=== PATIENT | female | born 1945 | race Caucasian/White ===

== ENCOUNTER 2017-06-17 00:55 | Observation (INO) | payer MEDICARE, OTHER ==
[2017-06-17] VITALS (10 sets, daily range): BP systolic 127–166; BP diastolic 57–86; PULSE 76–123; RESP 14–20; TEMP 97.6–98.4; O2SAT 96–100
[~2017-06-17] VITALS: Ht 167.6 cm; Wt 87.5 kg
[~2017-06-17 00:55] MED LIST: APIX5TAB PO; DIGO0.12 PO; NITR1SUB3 SL; RANI150C PO; RITU500P IVPB; VENTAER INH; ZOFR4TAB3 SL
[2017-06-17] MEDS ORDERED: BECL0.07 INH (01:14)
[2017-06-17] MEDS ORDERED: SODIUM CHLORIDE 0.9% FLUSH 10 ML FLUSH IVF PRN ×2 (01:15→04:30)
--- NOTE | 2017-06-17 01:20 | PD ---
HPI Chief Complaint: Cardiac Complaint Time Seen by Provider: 01:04 Travel History International Travel<30 days: No Contact w/Intl Traveler<30days: No Traveled to known affect area: No History of Present Illness HPI 71-year-old female presents to the emergency department by private transportation for evaluation of rapid heart rate. Patient reports just prior to arrival to the emergency department patient was awakened from sleep and noted that her heart rate was rapid. Patient reports heart rate was 150 at home. Patient also reports that she felt heaviness in her chest 3-4/10 in intensity. Patient took one sublingual nitroglycerin without symptomatic relief. Patient did not take aspirin due to her allergy to aspirin as well as currently taking insulin also. Patient states that she has had cardiac ablation by Dr. Ballesteros her financial assistance advisor October 2016 is had no issues with heart rate or chest pressure since that time. Patient was just seen by her financial assistance advisor Dr Ballesteros Thursday and scheduled to have outpatient echocardiogram and Holter monitoring. Patient is also followed by Dr. 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 Patient is been tolerating the medication well and symptoms have improved. Patient has history of atrial fibrillation, cardiac ablation, Xavier' s granulomatosis, left lower extremity DVT with allergy to Coumadin prior Xarelto on Eliquis, arthritis, asthma, cardiac disease with minor blockage 30% cardiac catheterization 2 no angina or CO history, sleep apnea w/ cpap, GERD, postmenopausal, sinus tachycardia, CVA and TIA, and multiple medication allergies. Patient also experienced nausea and shortness of breath. No referred neck jaw back shoulder arm or abdominal pain. [facility] Past Medical History Narrative Medical atrial fibrillation, sinus tachycardia, cardiac ablation, Xavier's granulomatosis, left lower extremity DVT with allergy to Coumadin prior Xarelto on Eliquis, arthritis, asthma, cardiac disease with minor blockage 30% cardiac catheterization 2 no angina or CO history, sleep apnea w/ cpap, GERD, postmenopausal, sinus tachycardia, CVA and TIA, and multiple medication allergies; hysterectomy cholecystectomy knee surgery tonsillectomy bladder sling ; no tobacco use no alcohol use; nursing notes reviewed Hx Anticoagulant Therapy: Yes (eliquis) Arthritis: Yes Asthma: No Atrial Fibrillation: Yes Autoimmune Disease: Yes (JAMIE'S DISEASE) Blood Disorders: No Heart Rhythm Problems: Yes (A- fib) Cancer: No Cardiac Catheterization: Yes (1994, 2013) Cardiovascular Problems: Yes High Cholesterol: No Chemotherapy: Yes (2 WEEKS AGO) Chest Pain: No Congestive Heart Failure: No COPD: No Cerebrovascular Accident: Yes Diabetes: No Diminished Hearing: Yes (HEARING AIDS) Endocrine: No Gastrointestinal Disorders: Yes (GALLSTONES, GERD, GASTROPORESIS, DIVERTICULITIS) GERD: Yes Glaucoma: No Genitourinary: Yes (URINARY INCONTINENCE) Headaches: Yes Hepatitis: No Hiatal Hernia: Yes Hypertension: No Immune Disorder: Yes (JAMIE'S GRANULOMATOSIS) Implanted Vascular Access Dvce: Yes Kidney Stones: No Musculoskeletal: No Neurologic: No Psychiatric: No Reproductive: No Respiratory: No Migraines: No Radiation Therapy: No Renal Failure: No Seizures: No Sleep Apnea: No Thyroid Disease: No Ulcer: Yes ?: Not Menopausal: Yes Past Surgical History Abdominal Surgery: No AICD: No Body Medical Devices: screw in right foot Cardiac Surgery: No Cholecystectomy: Yes Coronary Artery Bypass Graft: No Ear Surgery: No Endocrine Surgery: No Eye Surgery: No Genitourinary Surgery: Yes (2 BLADDER SLINGS) Gynecologic Surgery: Yes Hysterectomy: Yes Joint Replacement: Yes (RIGHT KNEE) Oral Surgery: No Pacemaker: No Thoracic Surgery: No Tonsillectomy: Yes (1964) Other Surgery: Yes (LEFT SHOULDER ROTATOR CUFF REPAIR, 2004) Social History Alcohol Use: No Tobacco Use: No Substance Use: No Allergies-Medications (Allergen,Severity, Reaction): Coded Allergies: Sulfa (Sulfonamide Antibiotics) (Unverified Allergy, Severe, Rash, 06/17/17 ) aspirin (Unverified Allergy, Severe, Headache, 06/17/17) clopidogrel (Unverified Allergy, Severe, Rash, 06/17/17) dipyridamole (Unverified Allergy, Severe, Headache, 06/17/17) doxycycline (Unverified Allergy, Severe, ORDOÑEZ, NAUSEA, 06/17/17) DIZZINESS AND CONFUSION, [place] methotrexate (Unverified Allergy, Severe, UNKNOWN, 06/17/17) minocycline (Unverified Allergy, Severe, ORDOÑEZ, NAUSEA, 06/17/17) DIZZINESS AND CONFUSION, [place] rosuvastatin (Unverified Allergy, Severe, MUSCLE SPASMS, 06/17/17) tigecycline (Unverified Allergy, Severe, ORDOÑEZ, NAUSEA, 06/17/17) DIZZINESS AND CONFUSION, [place] amlodipine (Unverified Allergy, Intermediate, 06/17/17) PAIN EVERYWHERE atenolol (Unverified Allergy, Intermediate, RASH, DEPRESSION, 06/17/17) atorvastatin (Unverified Allergy, Intermediate, 06/17/17) PAIN EVERYWHERE meloxicam (Unverified Allergy, Intermediate, ULCER; ABDOMINAL PAIN, ) metoprolol (Unverified Allergy, Intermediate, NAUSEA, EDEMA, CHEST PRESSURE, 06/17/17) morphine (Unverified Allergy, Intermediate, ANXIETY, 06/17/17) pravastatin (Unverified Allergy, Intermediate, 06/17/17) PAIN EVERYWHERE simvastatin (Unverified Allergy, Intermediate, 06/17/17) PAIN EVERYWHERE enoxaparin (Unverified Adverse Reaction, Severe, THROAT SWELLING AND NAUSEA, 06/17/17) warfarin (Unverified Adverse Reaction, Severe, THROAT SWELLING AND NAUSEA , 06/17/17) unknown Reported Meds & Prescriptions Reported Meds & Active Scripts Active Reported Qvar Inh (Beclomethasone Dipropionate) 40 Mcg/Act Aero 2 Puff INH BID Ranitidine (Ranitidine HCl) 150 Mg Cap 150 Mg PO BID Nitroglycerin SL (Nitroglycerin) 0.4 Mg Subl 0.4 Mg SL DIRECTED PRN ONE TABLET UNDER THE TONGUE NEEDED FOR CHEST PAIN, MAY REPEAT EVERY FIVE MINUTES FOR A TOTAL OF 3 DOSES OR CALL 911 IF NO RELIEF Eliquis (Apixaban) 5 Mg Tab 5 Mg PO BID Ventolin Hfa 18 GM Inh (Albuterol Sulfate) 90 Mcg/Act Aer 1 Puff INH Q4H PRN Rituxan Inj (Rituximab) 100 Mg/10 Ml Inj 700 Mg IVPB WEEKLY FOR 4 WEEKS Review of Systems Except as stated in HPI: all other systems reviewed are Neg General / Constitutional: No: Fever, Chills HENT: No: Congestion Cardiovascular: Positive: Chest Pain or Discomfort Respiratory: Positive: Shortness of Breath Gastrointestinal: Positive: Nausea Genitourinary: No: Decreased Urinary Output Musculoskeletal: No: Edema, Pain Skin: No Rash Neurologic: No: Weakness, Dizziness, Syncope Psychiatric: Positive: Anxiety Hematologic/Lymphatic: No: Lymph Node Enlargement Physical Exam Narrative GENERAL: Well-developed well-nourished female in no acute distress no respiratory distress. GCS 15. SKIN: Warm and dry. HEAD: Normocephalic. EYES: No scleral icterus. No injection or drainage. NECK: Supple, trachea midline. No JVD or lymphadenopathy. CARDIOVASCULAR: Increasing regular rate and rhythm without murmurs, gallops, or rubs. RESPIRATORY: Breath sounds equal bilaterally. No accessory muscle use. GASTROINTESTINAL: Abdomen soft, non-tender, nondistended. MUSCULOSKELETAL: No cyanosis, or edema. Radial dorsalis pedis pulses 2+ to palpation. No lower leg edema erythema posterior calf cord or Homans sign. BACK: Nontender without obvious deformity. No CVA tenderness. Data Data Last Documented VS Vital Signs Date Time Temp Pulse Resp B/P Pulse Ox O2 Delivery O2 Flow Rate FiO2 06/17/17 04:03 18 06/17/17 04:02 98.4 123 151/57 96 Room Air Orders Electrocardiogram (06/17/17 ) Electrocardiogram (06/17/17 01:04) Basic Metabolic Panel (Bmp) (06/17/17 01:04) Ckmb (Isoenzyme) Profile (06/17/17 01:04) Complete Blood Count With Diff (06/17/17 01:04) Magnesium (Mg) (06/17/17 01:04) Prothrombin Time / Inr (Pt) (06/17/17 01:04) Act Partial Throm Time (Ptt) (06/17/17 01:04) Troponin I (06/17/17 01:04) Chest, Single Ap (06/17/17 01:04) Ecg Monitoring (06/17/17 01:04) Bilateral Bp Monitoring (06/17/17 01:04) Iv Access Insert/Monitor (06/17/17 01:04) Oximetry (06/17/17 01:04) Oxygen Administration (06/17/17 01:04) Sodium Chloride 0.9% Flush (Ns Flush) (06/17/17 01:15) Thyroid Stimulating Hormone (06/17/17 01:04) Ondansetron Inj (Zofran Inj) (06/17/17 01:30) Urinalysis - C+S If Indicated (06/17/17 02:19) Nitroglycerin Sl (Nitrostat Sl) (06/17/17 04:00) Ct Pulmonary Angiogram (06/17/17 ) Troponin I (06/17/17 03:51) Sodium Chlorid 0.9% 500 Ml Inj (Ns 500 M (06/17/17 04:00) Admit Order (Ed Use Only) (06/17/17 ) ^ Saline Lock (06/17/17 04:22) Resp Oxygen Kaushik C Titrat 1-4 L (06/17/17 ) Notify Dr: Other (06/17/17 04:22) Sodium Chloride 0.9% Flush (Ns Flush) (06/17/17 09:00) Sodium Chloride 0.9% Flush (Ns Flush) (06/17/17 04:30) Labs Laboratory Tests Test 06/17/17 06/17/17 06/17/17 01:10 03:00 04:00 White Blood Count 10.4 TH/MM3 Red Blood Count 4.48 MIL/MM3 Hemoglobin 13.2 GM/DL Hematocrit 40.4 % Mean Corpuscular Volume 90.3 FL Mean Corpuscular Hemoglobin 29.5 PG Mean Corpuscular Hemoglobin 32.7 % Concent Red Cell Distribution Width 13.8 % Platelet Count 326 TH/MM3 Mean Platelet Volume 7.1 FL Neutrophils (%) (Auto) 73.8 % Lymphocytes (%) (Auto) 11.6 % Monocytes (%) (Auto) 12.2 % Eosinophils (%) (Auto) 1.4 % Basophils (%) (Auto) 1.0 % Neutrophils # (Auto) 7.7 TH/MM3 Lymphocytes # (Auto) 1.2 TH/MM3 Monocytes # (Auto) 1.3 TH/MM3 Eosinophils # (Auto) 0.1 TH/MM3 Basophils # (Auto) 0.1 TH/MM3 CBC Comment DIFF FINAL Differential Comment Prothrombin Time 10.3 SEC Prothromb Time International 0.9 RATIO Ratio Activated Partial 28.3 SEC Thromboplast Time Sodium Level 137 MEQ/L Potassium Level 3.8 MEQ/L Chloride Level 103 MEQ/L Carbon Dioxide Level 26.3 MEQ/L Anion Gap 8 MEQ/L Blood Urea Nitrogen 14 MG/DL Creatinine 0.83 MG/DL Estimat Glomerular Filtration 68 ML/MIN Rate Random Glucose 109 MG/DL Calcium Level 9.5 MG/DL Magnesium Level 1.9 MG/DL Total Creatine Kinase 55 U/L Troponin I LESS THAN 0.02 LESS THAN 0.02 NG/ML NG/ML Thyroid Stimulating Hormone 3.530 uIU/ML 3rd Gen Urine Color YELLOW Urine Turbidity CLEAR Urine pH 7.0 Urine Specific [place] 1.005 Urine Protein NEG mg/dL Urine Glucose (UA) NEG mg/dL Urine Ketones NEG mg/dL Urine Occult Blood NEG Urine Nitrite NEG Urine Bilirubin NEG Urine Leukocyte Esterase NEG Urine RBC 0-3 /hpf Urine WBC 0-2 /hpf Urine Squamous Epithelial 0-5 /hpf Cells Microscopic Urinalysis Comment CULT NOT INDICATED Exceptions Acute Myocardial Infarction ASA Not Given on Arrival: Hx. Allergy/Adv. Reaction (per patient aspirin allergy) MDM Medical Decision Making Medical Screen Exam Complete: Yes Emergency Medical Condition: Yes Medical Record Reviewed: Yes Interpretation(s) EKG: Sinus tachycardia rate 114 rsr' V1 no acute ST elevation or injury pattern change or ectopy noted troponin I: less than 0.02, not elevated; #2 troponin I: less than 0.02, not elevated TSH: 3.530, wnl coags: wnl Last Impressions Chest X-Ray 06/17/17 010 Signed Impressions: Service Date/Time: Thursday, June 17, 2017 01:10 - CONCLUSION: The lungs are clear. Kaveh Lorenzo MD CBC & BMP Diagram 06/17/17 01:10 Vital Signs Date Time Temp Pulse Resp B/P Pulse Ox O2 Delivery O2 Flow Rate FiO2 06/17/17 02:41 98 18 141/61 97 Room Air 06/17/17 01:27 144/61 161/86 06/17/17 01:15 98.3 114 18 166/79 99 Room Air 06/17/17 01:15 114 18 99 Room Air 06/17/17 01:15 98.3 114 18 166/79 99 Room Air 06/17/17 01:15 99 Room Air 06/17/17 01:04 98.3 114 18 166/79 99 UA: values wnl CTA pulmonary: FINDINGS: PULMONARY ARTERIES: No filling defects are seen in the pulmonary arteries through the segmental level. LUNGS: There is no consolidation or pneumothorax . No concerning pulmonary nodule is visualized. PLEURAE: There is no pleural thickening or pleural effusion. MEDIASTINUM: There is good visualization of the great vessels of the middle mediastinum. No evidence of mediastinal or hilar adenopathy/mass. CONCLUSION: The study is negative for pulmonary embolism. Kaveh Lorenzo MD on June 17, 2017 at 4:51 Board Certified Radiologist. This report was verified electronically. Differential Diagnosis Palpitations, arrhythmia, electrolyte disturbance, dehydration, ACS, CO, vasculitis, thyroid dysfunction, PE, pneumonia Narrative Course Patient placed on vehicle washer IV access obtained specimens collected and sent for resulting EKG performed It is now 2:10 AM and patient is in sinus rhythm no longer in sinus tachycardia without ectopy; electrolyte values are found to be in normal range TSH is within normal limits and CBC is automated differential is grossly within normal range; troponin I is less than 0.02, not elevated Patient voicing no concerns or complaints at this time. During ED visit patient has remained in sinus rhythm to mild sinus tachycardia. Chest discomfort has resolved. Lab values are found to be grossly within normal range. Chest x-ray identifies no acute process. In view of patient being awakened from sleep with chest pain/discomfort and tachycardia --will admit 23 h obs [facility] protocol. Patient is agreeable with this plan. Discussed with data security consultant [facility]. @ 3:53 AM patient reports recurrent chest pain tachycardia and sob; patient administered sl ntg 0.4 mg x 1, allergic to aspirin taking eliquis daily, and will repeat troponin I and send ct pulmonary angiogram. @ 5:04 AM HR 89; CTa pulmonary negative for PE, patient informed of imaging results. Sepsis Criteria SIRS Criteria (2 or more): Heart rate over 90 Physician Communication Physician Communication call placed to [facility] service for [facility] [employer] protocol OBS --discussed with Dr Banegas Diagnosis Primary Impression: Chest pain Qualified Code: R07.2 - Precordial pain Admitting Information Admitting Physician Requests: Observation Med/Other Pt SpecificInfo: Prescription(s) given Melia Bell MD Jun 17, 2017 01:20
[2017-06-17 01:27] LABS: AUTOMATED NEUTROPHIL # 7.7 TH/MM3 (1.8-7.7); BASOPHIL # 0.1 TH/MM3 (0-0.2); EOSINOPHIL # 0.1 TH/MM3 (0-0.4); EOSINOPHIL % 1.4 % (0.0-4.0); HEMATOCRIT 40.4 % (35.0-46.0); HEMO FLAGS DIFF FINAL; LYMPH % 11.6 % (9.0-44.0); LYMPHOCYTE # 1.2 TH/MM3 (1.0-4.8); MEAN CELL VOLUME 90.3 FL (80.0-100.0); MEAN CORPUSCULAR HEMOGLOBIN 29.5 PG (27.0-34.0); MEAN CORPUSCULAR HGB CONC 32.7 % (32.0-36.0); MONO % 12.2 % (0.0-8.0); NEUT % 73.8 % (16.0-70.0); PLATELET COUNT 326 TH/MM3 (150-450); RED BLOOD COUNT 4.48 MIL/MM3 (4.00-5.30); RED CELL DISTRIBUTION WIDTH 13.8 % (11.6-17.2); WHITE BLOOD COUNT 10.4 TH/MM3 (4.0-11.0)
[2017-06-17] MEDS ORDERED: ONDANSETRON HCL 4 MG/2 ML VIAL IV PUSH ONE (01:30)
--- NOTE | 2017-06-17 01:34 | RADRPT ---
EXAM DATE/TIME: 06/17/2017 01:10 [facility] COMPARISON: CHEST SINGLE AP, September 15, 2016, 14:44. INDICATIONS : Chest pressure. MEDICAL HISTORY : None. SURGICAL HISTORY : None. ENCOUNTER: Initial ACUITY: 1 day PAIN SCORE: 4/10 LOCATION: Bilateral chest FINDINGS: A single view of the chest demonstrates the lungs to be symmetrically aerated without evidence of mas s, infiltrate or effusion. The cardiomediastinal contours are unremarkable. Osseous structures are intact. CONCLUSION: The lungs are clear. Kaveh Lorenzo MD on June 17, 2017 at 1:32 Board Certified Radiologist. This report was verified electronically.
[2017-06-17 01:40] LABS: CHLORIDE 103 MEQ/L (98-107); POTASSIUM 3.8 MEQ/L (3.5-5.1); SODIUM (NA) 137 MEQ/L (136-145)
[2017-06-17 01:43] LABS: ANION GAP 8 MEQ/L (5-15); BICARBONATE 26.3 MEQ/L (21.0-32.0); BLOOD UREA NITROGEN 14 MG/DL (7-18); MAGNESIUM 1.9 MG/DL (1.5-2.5)
[2017-06-17 01:47] LABS: GLOMERULAR FILTRATION RATE 68 ML/MIN (>89)
[2017-06-17 01:58] LABS: CREATINE KINASE 55 U/L (26-192)
[2017-06-17 02:29] LABS: APTT (PATIENT) 28.3 SEC (24.3-30.1); INTERNATIONAL NORMALIZED RATIO 0.9 RATIO; PROTHROMBIN TIME - PATIENT 10.3 SEC (9.8-11.6)
[2017-06-17 03:08] LABS: BLOOD, URINE NEG (NEG); GLUCOSE,URINE NEG (NEG); KETONE, URINE NEG (NEG); NITRITE,URINE NEG (NEG)
[2017-06-17 03:17] LABS: URINE COLOR YELLOW (YELLW/STRAW)
[2017-06-17 03:18] LABS: COMMENT (UR) CULT NOT INDICATED; CULTURE IF INDICATED CULT NOT INDICATED; RBC, URINE 0-3 /hpf (0-3); SQUAMOUS EPITHELIAL CELL URINE 0-5 /hpf (0-5); WBC, URINE 0-2 /hpf (0-5)
[2017-06-17] MEDS ORDERED: SODIUM CHLORID 0.9% 500 ML INJ 500 ML IV ONE (04:00)
[2017-06-17] MEDS ORDERED: NITROGLYCERIN 0.4 MG SL 25 TABS/BTL SL ONE (04:00)
[2017-06-17] MEDS ORDERED: IOHEXOL 350 MG/ML 10 ML VIAL (for RAD DIAG) IV ONE (04:30)
[2017-06-17] MEDS ORDERED: SODIUM CHLORIDE 0.9% FLUSH 10 ML FLUSH IV FLUSH PRN (04:30)
--- NOTE | 2017-06-17 04:54 | RADRPT ---
EXAM DATE/TIME: 06/17/2017 04:13 [facility] COMPARISON: CT PULMONARY ANGIOGRAM, November 21, 2015, 3:04. INDICATIONS : Chest pain. Shortness of breath. IV CONTRAST: 75 cc Omnipaque 350 (iohexol) IV RADIATION DOSE: 18.39 CTDIvol (mGy) MEDICAL HISTORY : Cardiovascular disease. Gastroesophageal reflux disease. SURGICAL HISTORY : Cholecystectomy. ENCOUNTER: Initial ACUITY: 1 day PAIN SCALE: 5/10 LOCATION: Bilateral chest TECHNIQUE: Volumetric scanning of the chest was performed using a pulmonary embolism protocol MIP images were re constructed. Using automated exposure control and adjustment of the mA and/or kV according to patien t size, radiation dose was kept as low as reasonably achievable to obtain optimal diagnostic quality images. DICOM format image data is available electronically for review and comparison. Follow-up recommendations for detected pulmonary nodules are based at a minimum on nodule size and pa tient risk factors according to Fleischner Society Guidelines. FINDINGS: PULMONARY ARTERIES: No filling defects are seen in the pulmonary arteries through the segmental level. LUNGS: There is no consolidation or pneumothorax . No concerning pulmonary nodule is visualized. PLEURAE: There is no pleural thickening or pleural effusion. MEDIASTINUM: There is good visualization of the great vessels of the middle mediastinum. No evidence of mediastin al or hilar adenopathy/mass. CONCLUSION: The study is negative for pulmonary embolism. Kaveh Lorenzo MD on June 17, 2017 at 4:51 Board Certified Radiologist. This report was verified electronically.
[2017-06-17 07:07] LABS: CREATINE KINASE 42 U/L (26-192)
--- NOTE | 2017-06-17 08:59 | HHI.HP ---
[facility] Primary Care Physician Mino Myers M.D. Admission Diagnosis chest pain; sinus tachycardia Diagnoses: (1) Tachycardia, paroxysmal Diagnosis: Principal (2) Chest pain Diagnosis: Principal Chief Complaint: Fast heart rate Travel History International Travel<30 Days: No Contact w/Intl Traveler <30 Da: No Traveled to Known Affected Are: No History of Present Illness Written by Dany Olmstead, acting as scribe for Dr. Mortensen on 06/17/17 at 08: 43. 71-year-old female with known history of paroxysmal atrial fibrillation, Jamie's granulomatous doses, history of TIA, history of DVT and PE who presented to hospital because of fast heart rate. Patient states that she was in her normal state of health until early last evening where she woke up out of sleep with her heart racing. She states that it was at least 150 bpm. She has some underlying chest soreness so she came to the hospital for evaluation. On presentation patient had a heart rate of 114 with EKG showing sinus tachycardia with incomplete right bundle branch block. She was indicating to the ER physician that she had a discomfort in the middle part of her chest of 3/ 10 on a pain scale. She had some mild nausea, denies any vomiting, shortness of breath, dyspnea, radiation of discomfort, lightheadedness, dizziness. Patient took nitroglycerin at home as well as was given a dose here the emergency department with no significant relief. Patient states that when they placed her on oxygen all of her discomfort and heart rate improved, she is asymptomatic at this time The patient just had appointment with her chart collector Dr. Ballesteros on Thursday morning he has scheduled her to have further testing done with echocardiogram in 24-hour Holter monitor. The patient's chart collector Dr. Ballesteros was contacted, who indicated to rule patient out with cardiac enzymes and EKGs and if she rules out for any acute coronary event, discharge patient home and follow-up in his office tomorrow morning. This was discussed with the patient and she is in agreement with treatment plan. Review of Systems Cardiovascular: COMPLAINS OF: Chest pain, Palpitations Except as stated in HPI: all other systems reviewed are Neg Past Family Social History Past Medical History Paroxysmal atrial fibrillation Segura's granulomatosis History CVA History DVT and PE Past Surgical History Bladder surgery 2 Hysterectomy Right knee replacement Left rotator cuff surgery Multiple cardiac catheterizations Tonsillectomy Reported Medications Reported Meds & Active Scripts Active Reported Qvar Inh (Beclomethasone Dipropionate) 40 Mcg/Act Aero 2 Puff INH BID Ranitidine (Ranitidine HCl) 150 Mg Cap 150 Mg PO BID Nitroglycerin SL (Nitroglycerin) 0.4 Mg Subl 0.4 Mg SL DIRECTED PRN ONE TABLET UNDER THE TONGUE NEEDED FOR CHEST PAIN, MAY REPEAT EVERY FIVE MINUTES FOR A TOTAL OF 3 DOSES OR CALL 911 IF NO RELIEF Eliquis (Apixaban) 5 Mg Tab 5 Mg PO BID Ventolin Hfa 18 GM Inh (Albuterol Sulfate) 90 Mcg/Act Aer 1 Puff INH Q4H PRN Rituxan Inj (Rituximab) 100 Mg/10 Ml Inj 700 Mg IVPB WEEKLY FOR 4 WEEKS Allergies: Coded Allergies: Sulfa (Sulfonamide Antibiotics) (Unverified Allergy, Severe, Rash, 06/17/17 ) aspirin (Unverified Allergy, Severe, Headache, 06/17/17) clopidogrel (Unverified Allergy, Severe, Rash, 06/17/17) dipyridamole (Unverified Allergy, Severe, Headache, 06/17/17) doxycycline (Unverified Allergy, Severe, ORDOÑEZ, NAUSEA, 06/17/17) DIZZINESS AND CONFUSION, SCALP [place] methotrexate (Unverified Allergy, Severe, UNKNOWN, 06/17/17) minocycline (Unverified Allergy, Severe, ORDOÑEZ, NAUSEA, 06/17/17) DIZZINESS AND CONFUSION, SCALP [place] rosuvastatin (Unverified Allergy, Severe, MUSCLE SPASMS, 06/17/17) tigecycline (Unverified Allergy, Severe, ORDOÑEZ, NAUSEA, 06/17/17) DIZZINESS AND CONFUSION, SCALP [place] amlodipine (Unverified Allergy, Intermediate, 06/17/17) PAIN EVERYWHERE atenolol (Unverified Allergy, Intermediate, RASH, DEPRESSION, 06/17/17) atorvastatin (Unverified Allergy, Intermediate, 06/17/17) PAIN EVERYWHERE meloxicam (Unverified Allergy, Intermediate, ULCER; ABDOMINAL PAIN, ) metoprolol (Unverified Allergy, Intermediate, NAUSEA, EDEMA, CHEST PRESSURE, 06/17/17) morphine (Unverified Allergy, Intermediate, ANXIETY, 06/17/17) pravastatin (Unverified Allergy, Intermediate, 06/17/17) PAIN EVERYWHERE simvastatin (Unverified Allergy, Intermediate, 06/17/17) PAIN EVERYWHERE enoxaparin (Unverified Adverse Reaction, Severe, THROAT SWELLING AND NAUSEA, 06/17/17) warfarin (Unverified Adverse Reaction, Severe, THROAT SWELLING AND NAUSEA , 06/17/17) unknown Family History Reviewed is significant for mother at 85 from myocardial infarction, father had Alzheimer's, CVA and at age 93 from myocardial infarction, brother at 69 with myocardial infarction Social History Patient eyes any tobacco, alcohol or illicit drugs Physical Exam Vital Signs Vital Signs Date Time Temp Pulse Resp B/P Pulse Ox O2 Delivery O2 Flow Rate FiO2 06/17/17 08:13 98 Nasal Cannula 2.00 06/17/17 04:48 96 21 06/17/17 04:03 18 06/17/17 04:02 98.4 123 18 151/57 96 Room Air 06/17/17 04:00 97.6 83 20 147/74 100 06/17/17 02:41 98 18 141/61 97 Room Air 06/17/17 01:27 144/61 161/86 06/17/17 01:15 98.3 114 18 166/79 99 Room Air 06/17/17 01:15 114 18 99 Room Air 06/17/17 01:15 98.3 114 18 166/79 99 Room Air 06/17/17 01:15 99 Room Air 06/17/17 01:04 98.3 114 18 166/79 99 Physical Exam GENERAL: Well-developed, well-nourished, in no acute distress. alert and orientated HEENT: Head is normocephalic without any lesions or masses noted. Facial features are symmetric. Eyes: Pupils equal round reactive to light. Extraocular muscles are intact. Conjunctivae were clear. Oropharyngeal: Pharynx without any erythema edema. Tongue is midline without deviation. Buccal mucosa is moist without any masses or lesions NECK: Supple without any masses. Trachea midline no deviation. No JVD, no bruits are appreciated CARDIAC: Regular rhythm, regular rate. S1/S2 are heard. No murmurs gallops or rubs. LUNGS: Clear to auscultation bilaterally. No wheeze, rhonchi or rales. No use of accessory muscles on inspiration or expiration. ABDOMEN: Soft, nontender. Nondistended. Bowel sounds heard in all 4 quadrants. No organomegaly or masses. Negative rebound, negative guarding EXTREMITIES: No edema, pulses are equal bilaterally. No cyanosis or clubbing NEUROLOGY: Mood and affect appear appropriate. Cranial nerves II through XII grossly intact. Muscle strength 5/5 in upper and lower extremities bilaterally. Deep tendon reflexes are 2+ in upper and lower extremities bilaterally. Laboratory Laboratory Tests Test 06/17/17 06/17/17 06/17/17 06/17/17 01:10 03:00 04:00 06:30 White Blood Count 10.4 Red Blood Count 4.48 Hemoglobin 13.2 Hematocrit 40.4 Mean Corpuscular Volume 90.3 Mean Corpuscular Hemoglobin 29.5 Mean Corpuscular Hemoglobin 32.7 Concent Red Cell Distribution Width 13.8 Platelet Count 326 Mean Platelet Volume 7.1 Neutrophils (%) (Auto) 73.8 Lymphocytes (%) (Auto) 11.6 Monocytes (%) (Auto) 12.2 Eosinophils (%) (Auto) 1.4 Basophils (%) (Auto) 1.0 Neutrophils # (Auto) 7.7 Lymphocytes # (Auto) 1.2 Monocytes # (Auto) 1.3 Eosinophils # (Auto) 0.1 Basophils # (Auto) 0.1 CBC Comment DIFF FINAL Differential Comment Prothrombin Time 10.3 Prothromb Time International 0.9 Ratio Activated Partial 28.3 Thromboplast Time Sodium Level 137 Potassium Level 3.8 Chloride Level 103 Carbon Dioxide Level 26.3 Anion Gap 8 Blood Urea Nitrogen 14 Creatinine 0.83 Estimat Glomerular Filtration 68 Rate Random Glucose 109 Calcium Level 9.5 Magnesium Level 1.9 Total Creatine Kinase 55 42 Troponin I LESS THAN 0.02 LESS THAN 0.02 LESS THAN 0.02 Thyroid Stimulating Hormone 3.530 3rd Gen Urine Color YELLOW Urine Turbidity CLEAR Urine pH 7.0 Urine Specific [place] 1.005 Urine Protein NEG Urine Glucose (UA) NEG Urine Ketones NEG Urine Occult Blood NEG Urine Nitrite NEG Urine Bilirubin NEG Urine Leukocyte Esterase NEG Urine RBC 0-3 Urine WBC 0-2 Urine Squamous Epithelial 0-5 Cells Microscopic Urinalysis Comment CULT NOT INDICATED Result Diagram: 8/16/17 0110 06/17/17 0110 Imaging Last Impressions Chest X-Ray 06/17/17 0104 Signed Impressions: Service Date/Time: Saturday, June 17, 2017 01:10 - CONCLUSION: The lungs are clear. Kaveh Lorenzo MD CT Angiography 06/17/17 0000 Signed Impressions: Service Date/Time: Saturday, June 17, 2017 04:13 - CONCLUSION: The study is negative for pulmonary embolism. Kaveh Lorenzo MD Assessment and Plan Assessment and Plan Sinus tachycardia with associated chest soreness, resolved. I suspect some component of anxiety as well as the patient's 2 months ago, she has been grieving and had a lot more stress over this past week based on conversation with her daughter. Patient has increased risk factors for coronary disease with age, postmenopausal without hormone replacement, family history of heart disease Patient had been ruled out for acute coronary event with serial cardiac enzymes which are negative, serial EKGs show sinus rhythm, incomplete right bundle branch block without any changes Dr. Ballesteros, patient's chart collector was called and case was discussed with him. He indicated that the patient ruled out for any acute coronary event with serial cardiac enzymes and EKGs patient can be discharged home with follow-up in his office tomorrow morning. Nitroglycerin as needed - Low dose Ativan PRN script given. Paroxysmal atrial fibrillation, sinus rhythm at this time with rate control Anticoagulation continued History of CVA, PE, DVT Continue patient's anticoagulation next line DVT prevention Patient is on Eliquis Discharge disposition Discharge home in stable condition Activity: Ad henry. Diet: Healthy heart diet Medications per medication reconciliation Follow-up primary medical doctor one week, follow-up with Dr. Ballesteros tomorrow morning This note was transcribed by scribe [Dany Olmstead]. I, Dr. Nila Mortensen personally performed the history, physical exam, and medical decision making; and confirmed the accuracy of the information in the transcribed note. Authenticated by Dr. Nila Mortensen on 06/17/17 at 0845. Code Status Full code Discussed Condition With Patient, nursing staff, Dr. Ballesteros Problem Qualifiers (1) Chest pain: Qualified Code: R07.2 - Precordial pain Dany Olmstead Jun 17, 2017 08:59 Nila Mortensen MD Jun 17, 2017 10:44
[2017-06-17] MEDS ORDERED: SODIUM CHLORIDE 0.9% FLUSH 10 ML FLUSH IV FLUSH SCH ×2 (09:00)
--- NOTE | 2017-06-17 09:02 | HHI.DCPOC ---
Discharge Care Plan Diagnosis: (1) Tachycardia, paroxysmal (2) Chest pain Goals to Promote Your Health * To prevent worsening of your condition and complications * To maintain your health at the optimal level Directions to Meet Your Goals Take your medications as prescribed Follow your dietary instruction Follow activity as directed Keep your appointments as scheduled Take your immunizations and boosters as scheduled If your symptoms worsen call your PCP, if no PCP go to Urgent Care Center or Emergency Room Smoking is Dangerous to Your Health. Avoid second hand smoke Call the 24-hour hour crisis hotline for domestic abuse at Dany Olmstead Jun 17, 2017 09:02
[2017-06-17] MEDS ORDERED: LORA-392 PO (12:18)
--- NOTE | 2017-06-17 14:46 | EKG ---
Date Performed: 06/17/2017 Time Performed: 08:22:46 PTAGE: 71 years EKG: Sinus rhythm INCOMPLETE RIGHT BUNDLE BRANCH BLOCK MINIMAL VOLTAGE CRITERIA FOR LVH, CONSIDER NORMAL VARIANT BORDE RLINE ECG PREVIOUS TRACING : 06/17/2017 01.04 Compared to the previous tracing rate has decreased DOCTOR: Renzo Alejandra Interpretating Date/Time 06/17/2017 14:45:01
--- NOTE | 2017-06-17 15:09 | EKG ---
Date Performed: 06/17/2017 Time Performed: 01:04:59 PTAGE: 71 years EKG: SINUS TACHYCARDIA INCOMPLETE RIGHT BUNDLE BRANCH BLOCK MINIMAL ST DEPRESSION ABNORMAL RHYTH M ECG PREVIOUS TRACING : 09/15/2016 15.23 Compared to the previous tracing, rate has increased DOCTOR: Renzo Alejandra Interpretating Date/Time 06/17/2017 15:08:51
== END 2017-06-17 14:56 | disposition home or self-care (01) ==
LOC: PHED 00:55 → PHEDA 04:24 → PH3A 05:31
PROVIDERS: ADMIT Family Medicine; ATTEND Family Medicine
DX: R00.0 Tachycardia, unspecified (principal); R07.2 Precordial pain; I48.0 Paroxysmal atrial fibrillation; I45.10 Unspecified right bundle-branch block; J45.909 Unspecified asthma, uncomplicated; M31.30 Wegener's granulomatosis without renal involvement; K21.9 Gastro-esophageal reflux disease without esophagitis; H91.90 Unspecified hearing loss, unspecified ear; Z86.711 Personal history of pulmonary embolism; Z86.718 Personal history of other venous thrombosis and embolism; Z86.73 Personal history of transient ischemic attack (TIA), and cerebral infarction without residual deficits; Z96.651 Presence of right artificial knee joint
CPT/HCPCS: 71010; 71275; 80048; 81001; 82550; 83735; 84443; 84484; 85025; 85610; 85730; 93005; 96365; 96375; 99285; G0378; J2405; J7040; Q9967

== ENCOUNTER 2018-01-27 14:59 | Observation (INO) | payer MEDICARE, OTHER ==
[~2018-01-27] VITALS: Ht 167.6 cm; Wt 86.0 kg
[~2018-01-27 14:59] MED LIST changes: +BECL0.07 INH; -DIGO0.12 PO; +LORA-392 PO; -ZOFR4TAB3 SL
[2018-01-27] MEDS ORDERED: IOHEXOL 350 MG/ML 10 ML VIAL (for RAD DIAG) IVCONTRAST ONE (15:00)
[2018-01-27 15:05] VITALS: BP 165/72; PULSE 112; RESP 19; TEMP 99; O2SAT 98
[2018-01-27] MEDS ORDERED: SODIUM CHLORIDE 0.9% FLUSH 10 ML FLUSH IVF PRN (15:15)
--- NOTE | 2018-01-27 15:26 | RADRPT ---
EXAM DATE/TIME: 01/27/2018 15:16 [facility] COMPARISON: CHEST SINGLE AP, June 17, 2017, 1:10. INDICATIONS : Possible storke, weakness. MEDICAL HISTORY : A-fib. SURGICAL HISTORY : Cardiac ablasion. ENCOUNTER: Initial ACUITY: 1 day PAIN SCORE: 0/10 LOCATION: Bilateral chest FINDINGS: A single view of the chest demonstrates the lungs to be symmetrically aerated without evidence of mas s, infiltrate or effusion. There is mild atelectasis in the right lung base. The cardiomediastinal co ntours are unremarkable. Osseous structures are intact. CONCLUSION: There is mild atelectasis in the right lung base. Otherwise, the rest of lungs are grossly clear. No significant changes compared to the prior study. Michael Cole MD on January 27, 2018 at 15:23 Board Certified Radiologist. This report was verified electronically.
[2018-01-27 15:28] VITALS: O2SAT 98
--- NOTE | 2018-01-27 15:50 | PD ---
HPI Chief Complaint: Neuro Symptoms/ Deficits Time Seen by Provider: 15:11 Travel History International Travel<30 days: No Contact w/Intl Traveler<30days: No Traveled to known affect area: No History of Present Illness HPI Patient is a 72-year-old female presenting to emergency department for evaluation of sensory disturbance to the right side of her face. Patient states that approximately 1320 this afternoon she started having a "weird sensation" to the right side of her head which radiated to her right cheek. She denies any weakness, visual changes, speech disturbance, gait abnormality, chest pain, shortness of breath, abdominal pain. Patient reports a history of CVA, TIA, TMJ, Jamie's granulomatosis. She had ablation in 2016 for A. fib/ flutter. She is currently on Rituxan for the Jamie's. Patient denies any pain or headache at this time. PFSH Past Medical History Hx Anticoagulant Therapy: Yes (eliquis) Arthritis: Yes Atrial Fibrillation: Yes Autoimmune Disease: Yes (JAMIE'S DISEASE) Cardiac Catheterization: Yes (1994, 2013) Chemotherapy: Yes Cerebrovascular Accident: Yes (CVA/TIA ) Diminished Hearing: Yes (HEARING AIDS) Gastrointestinal Disorders: Yes (GALLSTONES, GERD, GASTROPORESIS, DIVERTICULITIS) GERD: Yes Genitourinary: Yes (URINARY INCONTINENCE) Headaches: Yes Hiatal Hernia: Yes Immune Disorder: Yes (JAMIE'S GRANULOMATOSIS) Implanted Vascular Access Dvce: Yes Neurologic: Yes Ulcer: Yes Tetanus Vaccination: Unknown Menopausal: Yes Past Surgical History Body Medical Devices: screw in right foot Cardiac Surgery: Yes (CARDIAC ABLATION) Cholecystectomy: Yes Genitourinary Surgery: Yes (2 BLADDER SLINGS) Hysterectomy: Yes Joint Replacement: Yes (RIGHT KNEE) Tonsillectomy: Yes (1964) Other Surgery: Yes (LEFT SHOULDER ROTATOR CUFF REPAIR, 2004) Family History Family Myocardial Infarction: Yes Social History Alcohol Use: No Tobacco Use: No Substance Use: No Allergies-Medications (Allergen,Severity, Reaction): Coded Allergies: Sulfa (Sulfonamide Antibiotics) (Unverified Allergy, Severe, Rash, 01/27/18 ) aspirin (Unverified Allergy, Severe, Headache, 01/27/18) clopidogrel (Unverified Allergy, Severe, Rash, 01/27/18) dipyridamole (Unverified Allergy, Severe, Headache, 01/27/18) doxycycline (Unverified Allergy, Severe, ORDOÑEZ, NAUSEA, 01/27/18) DIZZINESS AND CONFUSION, SCALP [place] methotrexate (Unverified Allergy, Severe, UNKNOWN, 01/27/18) minocycline (Unverified Allergy, Severe, ORDOÑEZ, NAUSEA, 01/27/18) DIZZINESS AND CONFUSION, SCALP [place] rosuvastatin (Unverified Allergy, Severe, MUSCLE SPASMS, 01/27/18) tigecycline (Unverified Allergy, Severe, ORDOÑEZ, NAUSEA, 01/27/18) DIZZINESS AND CONFUSION, SCALP [place] amlodipine (Unverified Allergy, Intermediate, 01/27/18) PAIN EVERYWHERE atenolol (Unverified Allergy, Intermediate, RASH, DEPRESSION, 01/27/18) atorvastatin (Unverified Allergy, Intermediate, 01/27/18) PAIN EVERYWHERE meloxicam (Unverified Allergy, Intermediate, ULCER; ABDOMINAL PAIN, ) metoprolol (Unverified Allergy, Intermediate, NAUSEA, EDEMA, CHEST PRESSURE, 01/27/18) morphine (Unverified Allergy, Intermediate, ANXIETY, 01/27/18) pravastatin (Unverified Allergy, Intermediate, 01/27/18) PAIN EVERYWHERE simvastatin (Unverified Allergy, Intermediate, 01/27/18) PAIN EVERYWHERE enoxaparin (Unverified Adverse Reaction, Severe, THROAT SWELLING AND NAUSEA, 01/27/18) warfarin (Unverified Adverse Reaction, Severe, THROAT SWELLING AND NAUSEA , 01/27/18) unknown Reported Meds & Prescriptions Reported Meds & Active Scripts Active Reported Ranitidine (Ranitidine HCl) 150 Mg Cap 150 Mg PO BID Nitroglycerin SL (Nitroglycerin) 0.4 Mg Subl 0.4 Mg SL DIRECTED PRN ONE TABLET UNDER THE TONGUE NEEDED FOR CHEST PAIN, MAY REPEAT EVERY FIVE MINUTES FOR A TOTAL OF 3 DOSES OR CALL 911 IF NO RELIEF Eliquis (Apixaban) 5 Mg Tab 5 Mg PO BID Ventolin Hfa 18 GM Inh (Albuterol Sulfate) 90 Mcg/Act Aer 1 Puff INH Q4H PRN Rituxan Inj (Rituximab) 100 Mg/10 Ml Inj 700 Mg IVPB WEEKLY FOR 4 WEEKS Review of Systems Except as stated in HPI: all other systems reviewed are Neg Cardiovascular: No: Chest Pain or Discomfort Respiratory: No: Shortness of Breath Gastrointestinal: No: Nausea, Abdominal Pain Musculoskeletal: No: Myalgias Neurologic: Positive: Paresthesia, No: Weakness, Dizziness, Syncope, Focal Abnormalities Physical Exam Narrative GENERAL: Well-developed, well-nourished, alert elderly female. Presenting in no acute distress. SKIN: Warm and dry. HEAD: Atraumatic. Normocephalic. EYES: Pupils equal and round. No scleral icterus. No injection or drainage. ENT: No nasal bleeding or discharge. Mucous membranes pink and moist. NECK: Trachea midline. No JVD. CARDIOVASCULAR: Regular rate and rhythm. RESPIRATORY: No accessory muscle use. Clear to auscultation. Breath sounds equal bilaterally. GASTROINTESTINAL: Abdomen soft, non-tender, nondistended. Hepatic and splenic margins not palpable. MUSCULOSKELETAL: Extremities without clubbing, cyanosis, or edema. No obvious deformities. NEUROLOGICAL: Awake and alert. No obvious cranial nerve deficits. Motor grossly within normal limits. Five out of 5 muscle strength in the arms and legs. Normal speech. PSYCHIATRIC: Appropriate mood and affect; insight and judgment normal. Data Data Last Documented VS Vital Signs Date Time Temp Pulse Resp B/P (MAP) Pulse Ox O2 Delivery O2 Flow Rate FiO2 01/27/18 15:28 98 Room Air 01/27/18 15:05 99.0 112 19 165/72 (103) Orders Orders Electrocardiogram (01/27/18 15:11) Prothrombin Time / Inr (Pt) (01/27/18 15:11) Act Partial Throm Time (Ptt) (01/27/18 15:11) Complete Blood Count With Diff (01/27/18 15:11) Comprehensive Metabolic Panel (01/27/18 15:11) Creatine Kinase (Cpk) (01/27/18 15:11) Troponin I (01/27/18 15:11) Ct Brain W/O Iv Contrast(Rout) (01/27/18 15:11) Chest, Single Ap (01/27/18 15:11) Ecg Monitoring (01/27/18 15:11) Iv Access Insert/Monitor (01/27/18 15:11) Oximetry (01/27/18 15:11) Sodium Chloride 0.9% Flush (Ns Flush) (01/27/18 15:15) Cta Neck W Iv Contrast W 3d (01/27/18 ) Cta Brain W Iv Contrast W 3d (01/27/18 ) MDM Medical Decision Making Medical Screen Exam Complete: Yes Emergency Medical Condition: Yes Interpretation(s) Vital Signs Date Time Temp Pulse Resp B/P (MAP) Pulse Ox O2 Delivery O2 Flow Rate FiO2 01/27/18 15:28 98 Room Air 01/27/18 15:05 99.0 112 19 165/72 (103) 98 Differential Diagnosis CVA versus TIA versus vasculitic neuropathy versus other Narrative Course Care of patient transferred to my attending physician. Chitra Ortez Jan 27, 2018 15:50
--- NOTE | 2018-01-27 15:58 | PD ---
Physical Exam Date Seen by Provider: Jan 27, 2018 Time Seen by Provider: 15:54 Narrative 72-year-old female came to the emergency room brought by EMS after she had sudden onset of tingling sensation on the right side of her face that stops midline on her chin. Patient said the onset was about one and half hours ago. She has history of Jamie's granulomatosis. She also has history of A. fib but has undergone an ablation. She continues to take Eliquis. Patient did not notice any other deficits including any speech issues or vision problem. No weakness of any of her extremities. I evaluated her and the only subjective neurologic symptom was the paresthesia. Based on that the NIH stroke score was of 1. Patient denies of any headache or syncopal episode. I discussed the case with the neurologist production potter Dr. Lundberg and she agreed that a stroke alert doesn't need to be called since patient is not a TPA candidate being on the anticoagulant. Blood test and CT scan was ordered as per CVA protocol otherwise. Waiting for these test results to come back. His plain CT is negative for any head bleed patient will be given a be aspirin. She will eventually require admission. Data Data Last Documented VS Vital Signs Date Time Temp Pulse Resp B/P (MAP) Pulse Ox O2 Delivery O2 Flow Rate FiO2 01/27/18 19:07 84 18 158/71 (100) 96 Room Air 01/27/18 15:05 99.0 Orders Orders Electrocardiogram (01/27/18 15:11) Prothrombin Time / Inr (Pt) (01/27/18 15:11) Act Partial Throm Time (Ptt) (01/27/18 15:11) Complete Blood Count With Diff (01/27/18 15:11) Comprehensive Metabolic Panel (01/27/18 15:11) Creatine Kinase (Cpk) (01/27/18 15:11) Troponin I (01/27/18 15:11) Ct Brain W/O Iv Contrast(Rout) (01/27/18 15:11) Chest, Single Ap (01/27/18 15:11) Ecg Monitoring (01/27/18 15:11) Iv Access Insert/Monitor (01/27/18 15:11) Oximetry (01/27/18 15:11) Sodium Chloride 0.9% Flush (Ns Flush) (01/27/18 15:15) Cta Neck W Iv Contrast W 3d (01/27/18 ) Cta Brain W Iv Contrast W 3d (01/27/18 ) Iohexol 350 Inj (Omnipaque 350 Inj) (01/27/18 15:00) Admit Order (Ed Use Only) (01/27/18 19:26) Labs Laboratory Tests Test 01/27/18 15:40 White Blood Count 8.5 TH/MM3 Red Blood Count 4.18 MIL/MM3 Hemoglobin 12.7 GM/DL Hematocrit 37.3 % Mean Corpuscular Volume 89.1 FL Mean Corpuscular Hemoglobin 30.4 PG Mean Corpuscular Hemoglobin Concent 34.1 % Red Cell Distribution Width 13.7 % Platelet Count 312 TH/MM3 Mean Platelet Volume 7.5 FL Neutrophils (%) (Auto) 81.2 % Lymphocytes (%) (Auto) 8.4 % Monocytes (%) (Auto) 8.9 % Eosinophils (%) (Auto) 0.5 % Basophils (%) (Auto) 1.0 % Neutrophils # (Auto) 6.9 TH/MM3 Lymphocytes # (Auto) 0.7 TH/MM3 Monocytes # (Auto) 0.8 TH/MM3 Eosinophils # (Auto) 0.0 TH/MM3 Basophils # (Auto) 0.1 TH/MM3 CBC Comment DIFF FINAL Differential Comment Prothrombin Time 10.0 SEC Prothromb Time International Ratio 1.0 RATIO Activated Partial Thromboplast Time 26.3 SEC Blood Urea Nitrogen 12 MG/DL Creatinine 0.82 MG/DL Random Glucose 89 MG/DL Total Protein 7.6 GM/DL Albumin 3.8 GM/DL Calcium Level 9.4 MG/DL Alkaline Phosphatase 103 U/L Aspartate Amino Transf (AST/SGOT) 15 U/L Alanine Aminotransferase (ALT/SGPT) 16 U/L Total Bilirubin 0.3 MG/DL Sodium Level 141 MEQ/L Potassium Level 4.5 MEQ/L Chloride Level 105 MEQ/L Carbon Dioxide Level 29.7 MEQ/L Anion Gap 6 MEQ/L Estimat Glomerular Filtration Rate 68 ML/MIN Total Creatine Kinase 62 U/L Troponin I LESS THAN 0.02 NG/ML [facility] Supervised Visit with LASHANDA: No Interpretation(s) Twelve-lead EKG was reviewed by me. Normal sinus rhythm, left axis deviation, poor R-wave progression, old inferior and anterior [place], tachycardia, non specific ST-T wave changes. Heart rate of 10 2 bpm. Differential Diagnosis CVA, TIA, intracranial bleed Narrative Course 3:57 PM awaiting for the test results to come back. 7:[address] scan results of back and unremarkable. Patient will be admitted for observation. Diagnosis Primary Impression: TIA Admitting Information Admitting Physician Requests: Observation Mallika Aviles MD Jan 27, 2018 15:58
[2018-01-27 16:09] LABS: AUTOMATED NEUTROPHIL # 6.9 TH/MM3 (1.8-7.7); BASOPHIL # 0.1 TH/MM3 (0-0.2); EOSINOPHIL % 0.5 % (0.0-4.0); HEMATOCRIT 37.3 % (35.0-46.0); HEMOGLOBIN 12.7 GM/DL (11.6-15.3); LYMPH % 8.4 % (9.0-44.0); LYMPHOCYTE # 0.7 TH/MM3 (1.0-4.8); MEAN CELL VOLUME 89.1 FL (80.0-100.0); MEAN CORPUSCULAR HEMOGLOBIN 30.4 PG (27.0-34.0); MEAN CORPUSCULAR HGB CONC 34.1 % (32.0-36.0); MEAN PLATELET VOLUME 7.5 FL (7.0-11.0); MONO % 8.9 % (0.0-8.0); MONOCYTE # 0.8 TH/MM3 (0-0.9); NEUT % 81.2 % (16.0-70.0); PLATELET COUNT 312 TH/MM3 (150-450); RED BLOOD COUNT 4.18 MIL/MM3 (4.00-5.30); RED CELL DISTRIBUTION WIDTH 13.7 % (11.6-17.2); WHITE BLOOD COUNT 8.5 TH/MM3 (4.0-11.0)
[2018-01-27 16:27] LABS: ALBUMIN 3.8 GM/DL (3.4-5.0); AST (GOT) 15 U/L (15-37); BICARBONATE 29.7 MEQ/L (21.0-32.0); BLOOD UREA NITROGEN 12 MG/DL (7-18); CALCIUM 9.4 MG/DL (8.5-10.1); CHLORIDE 105 MEQ/L (98-107); CREATININE 0.82 MG/DL (0.50-1.00); GLOMERULAR FILTRATION RATE 68 ML/MIN (>89); GLUCOSE,RANDOM 89 MG/DL (74-106); SODIUM (NA) 141 MEQ/L (136-145)
[2018-01-27 16:32] LABS: ALKALINE PHOSPHATASE 103 U/L (45-117); ALT (GPT) 16 U/L (10-53); TOTAL BILIRUBIN ADULT 0.3 MG/DL (0.2-1.0); TOTAL PROTEIN 7.6 GM/DL (6.4-8.2); TROPONIN I LESS THAN 0.02 NG/ML (0.02-0.05)
[2018-01-27 18:00] VITALS: BP 141/67; PULSE 85; RESP 20; O2SAT 97
--- NOTE | 2018-01-27 18:48 | RADRPT ---
EXAM DATE/TIME: 01/27/2018 17:53 [facility] COMPARISON: CT BRAIN W/O CONTRAST, April 03, 2016, 16:19. INDICATIONS : Patient right sided cheek and facial numbness started 1330 RADIATION DOSE: 52.83 CTDIvol (mGy) MEDICAL HISTORY : Stroke. Cardiovascular disease SURGICAL HISTORY : Hysterectomy. ENCOUNTER: Initial ACUITY: 1 day PAIN SCALE: 1/10 LOCATION: Right facial TECHNIQUE: Multiple contiguous axial images were obtained of the head. Using automated exposure control and adj ustment of the mA and/or kV according to patient size, radiation dose was kept as low as reasonably a chievable to obtain optimal diagnostic quality images. DICOM format image data is available electro nically for review and comparison. FINDINGS: CEREBRUM: The ventricles are normal for age. No evidence of midline shift, mass lesion, hemorrhage or acute in farction. No extra-axial fluid collections are seen. POSTERIOR FOSSA: The cerebellum and brainstem are intact. The 4th ventricle is midline. The cerebellopontine angle i s unremarkable. EXTRACRANIAL: The visualized portion of the orbits is intact. SKULL: The calvaria is intact. No evidence of skull fracture. CONCLUSION: No acute disease. Florentin Rea MD on January 27, 2018 at 18:46 Board Certified Radiologist. This report was verified electronically.
--- NOTE | 2018-01-27 18:54 | RADRPT ---
EXAM DATE/TIME: 01/27/2018 17:53 [facility] COMPARISON: No previous studies available for comparison. INDICATIONS : Right sided cheek and facial pain. IV CONTRAST: 75 cc Omnipaque 350 (iohexol) IV ; Cumulative dose for multiple exams. RADIATION DOSE: 9.76 CTDIvol (mGy) ; Combined studies MEDICAL HISTORY : Stroke. Cardiovascular disease SURGICAL HISTORY : Hysterectomy. ENCOUNTER: Initial ACUITY: 1 day PAIN SCALE: 10/10 LOCATION: Right cranial TECHNIQUE: Volumetric scanning was performed using a multi-row detector CT scanner. The data was post processed with a variety of visualization algorithms including full volume maximum intensity projection, multi -planar sliding thin slab reformation, curved planar reformation, and surface rendering techniques. Using automated exposure control and adjustment of the mA and/or kV according to patient size, radiat ion dose was kept as low as reasonably achievable to obtain optimal diagnostic quality images. DICO M format image data is available electronically for review and comparison. FINDINGS: There is excellent visualization of the major intracranial arteries out to the second-order branch ve ssels. There is no evidence for aneurysm, vessel truncation or stenosis, and no evidence for vascula r malformation. Most of the posterior cerebral artery flow arises from the internal arteries bilaterally. This is a n ormal variant. CONCLUSION: Negative CTA of the head. Florentin Rea MD on January 27, 2018 at 18:50 Board Certified Radiologist. This report was verified electronically.
--- NOTE | 2018-01-27 18:56 | RADRPT ---
EXAM DATE/TIME: 01/27/2018 17:53 [facility] COMPARISON: No previous studies available for comparison. INDICATIONS : Right sided cheek and face numbness since 1320. IV CONTRAST: 75 cc Omnipaque 350 (iohexol) IV ; Cumulative dose for multiple exams. RADIATION DOSE: 9.76 CTDIvol (mGy) ; Combined studies MEDICAL HISTORY : Stroke. Hypertension. SURGICAL HISTORY : Hysterectomy. ENCOUNTER: Initial ACUITY: 1 day PAIN SCALE: 1/10 LOCATION: Right facial Elevated flow velocities and ICA/CCA ratios have been found to correlate with increased degrees of vessel stenosis, calculated as percentage of diameter relative to a normal segment of distal ICA/CCA. TECHNIQUE: Volumetric scanning was performed using a multirow detector CT scanner. The data was post processed with a variety of visualization algorithms including full-volume maximum intensity projection, multip lanar sliding thin-slab reformation, curved-planar reformation, and surface-rendering techniques. Us ing automated exposure control and adjustment of the mA and/or kV according to patient size, radiatio n dose was kept as low as reasonably achievable to obtain optimal diagnostic quality images. DICOM f ormat image data is available electronically for review and comparison. FINDINGS: AORTIC ARCH: There is a three-vessel origin of the great vessels from the aorta. No evidence of ostial narrowing. The proximal great vessels are tortuous. RIGHT CAROTID: The common carotid artery is intact. The carotid bulb has a normal configuration without ulceration o r narrowing. The internal carotid artery lumen is smooth without stenosis. The external carotid antonieta ry is intact. LEFT CAROTID: The common carotid artery is intact. The carotid bulb has a normal configuration without ulceration or narrowing. The internal carotid artery lumen is smooth without stenosis. The external carotid ar amor is intact. VERTEBRALS: The vertebral arteries have a symmetric diameter. No stenotic lesions are seen. CONCLUSION: No acute disease. No significant stenosis is seen. Florentin Rea MD on January 27, 2018 at 18:53 Board Certified Radiologist. This report was verified electronically.
[2018-01-27 19:07] VITALS: BP 158/71; PULSE 84; RESP 18; O2SAT 96
--- NOTE | 2018-01-27 20:41 | HHI.HP ---
HPI Service [facility] Primary Care Physician Mino Myers M.D. 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 fib with ablation 2015 on anticoagulation and GERD presented to the ED with complaints of right-sided face tingling that occurred today. Patient states she called her oncologist office and they recommended her coming to the ED. Upon examination she still complains of right -sided face tingling although it is less severe she denies any weakness in any extremities and no facial droop, and denies any double or blurry vision. States she is TIAs in the past but none that has left her with any paralysis. She denies any associated chest pain, shortness of breath, fever, chills, nausea or vomiting. Dr. Arias oncologist Dr. Cuellar ambulatory nurse Dr. 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 fib, ablation 2016 GERD Past Surgical History Cholecystectomy Right knee replacement Carpal tunnel Left rotator cuffs surgery Ablation 2015 Reported Medications Reported Meds & Active Scripts Active Reported Ranitidine (Ranitidine HCl) 150 Mg Cap 150 Mg PO BID Nitroglycerin SL (Nitroglycerin) 0.4 Mg Subl 0.4 Mg SL DIRECTED PRN ONE TABLET UNDER THE TONGUE NEEDED FOR CHEST PAIN, MAY REPEAT EVERY FIVE MINUTES FOR A TOTAL OF 3 DOSES OR CALL 911 IF NO RELIEF Eliquis (Apixaban) 5 Mg Tab 5 Mg PO BID Ventolin Hfa 18 GM Inh (Albuterol Sulfate) 90 Mcg/Act Aer 1 Puff INH Q4H PRN Rituxan Inj (Rituximab) 100 Mg/10 Ml Inj 700 Mg IVPB WEEKLY FOR 4 WEEKS Allergies: Coded Allergies: Sulfa (Sulfonamide Antibiotics) (Unverified Allergy, Severe, Rash, 01/27/18 ) aspirin (Unverified Allergy, Severe, Headache, 01/27/18) clopidogrel (Unverified Allergy, Severe, Rash, 01/27/18) dipyridamole (Unverified Allergy, Severe, Headache, 01/27/18) doxycycline (Unverified Allergy, Severe, ORDOÑEZ, NAUSEA, 01/27/18) DIZZINESS AND CONFUSION, [place]P [place] methotrexate (Unverified Allergy, Severe, UNKNOWN, 01/27/18) minocycline (Unverified Allergy, Severe, ORDOÑEZ, NAUSEA, 01/27/18) DIZZINESS AND CONFUSION, SCALP [place] rosuvastatin (Unverified Allergy, Severe, MUSCLE SPASMS, 01/27/18) tigecycline (Unverified Allergy, Severe, ORDOÑEZ, NAUSEA, 01/27/18) DIZZINESS AND CONFUSION, SCALP [place] amlodipine (Unverified Allergy, Intermediate, 01/27/18) PAIN EVERYWHERE atenolol (Unverified Allergy, Intermediate, RASH, DEPRESSION, 01/27/18) atorvastatin (Unverified Allergy, Intermediate, 01/27/18) PAIN EVERYWHERE meloxicam (Unverified Allergy, Intermediate, ULCER; ABDOMINAL PAIN, ) metoprolol (Unverified Allergy, Intermediate, NAUSEA, EDEMA, CHEST PRESSURE, 01/27/18) morphine (Unverified Allergy, Intermediate, ANXIETY, 01/27/18) pravastatin (Unverified Allergy, Intermediate, 01/27/18) PAIN EVERYWHERE simvastatin (Unverified Allergy, Intermediate, 01/27/18) PAIN EVERYWHERE enoxaparin (Unverified Adverse Reaction, Severe, THROAT SWELLING AND NAUSEA, 01/27/18) warfarin (Unverified Adverse Reaction, Severe, THROAT SWELLING AND NAUSEA , 01/27/18) unknown Active Ordered Medications Current Medications Medications (Trade) Dose Ordered Sig/Rhoda Route Start Time Stop Time Status Last Admin (NS Flush) 2 ml UNSCH PRN IVF 01/27/18 15:15 (NS Flush) 2 ml BID IV FLUSH 01/27/18 21:00 UNV (NS Flush) 2 ml UNSCH PRN IV FLUSH 01/27/18 20:45 UNV Family History Donn: CVA, [place] Mom: Hypertension, heart disease, [place] Social History Patient denies any tobacco, alcohol or illicit drug use Physical Exam Vital Signs Vital Signs Date Time Temp Pulse Resp B/P (MAP) Pulse Ox O2 Delivery O2 Flow Rate FiO2 01/27/18 19:07 84 18 158/71 (100) 96 Room Air 01/27/18 18:00 85 20 141/67 (91) 97 Room Air 01/27/18 15:28 98 Room Air 01/27/18 15:05 99.0 112 19 165/72 (103) 98 Physical Exam GENERAL: This is a well-nourished, well-developed patient, in no apparent distress. SKIN: No rashes, ecchymoses or lesions. Cool and dry. HEAD: Atraumatic. Normocephalic. Right facial and right head tingling sensation EYES: Pupils equal round and reactive. Extraocular motions intact. ENT: Nose without bleeding, purulent drainage or septal hematoma. Airway patent. NECK: Trachea midline. No JVD or lymphadenopathy. CARDIOVASCULAR: Regular rate and rhythm without murmurs, gallops, or rubs. RESPIRATORY: Clear to auscultation. Breath sounds equal bilaterally. No wheezes , rales, or rhonchi. GASTROINTESTINAL: Abdomen soft, non-tender, nondistended. MUSCULOSKELETAL: Extremities without clubbing, cyanosis, or edema. No calf tenderness. NEUROLOGICAL: Awake and alert. Cranial nerves II through XII intact. Motor and sensory grossly within normal limits. Five out of 5 muscle strength in all muscle groups. Normal speech. Laboratory Laboratory Tests Test 01/27/18 15:40 White Blood Count 8.5 Red Blood Count 4.18 Hemoglobin 12.7 Hematocrit 37.3 Mean Corpuscular Volume 89.1 Mean Corpuscular Hemoglobin 30.4 Mean Corpuscular Hemoglobin Concent 34.1 Red Cell Distribution Width 13.7 Platelet Count 312 Mean Platelet Volume 7.5 Neutrophils (%) (Auto) 81.2 Lymphocytes (%) (Auto) 8.4 Monocytes (%) (Auto) 8.9 Eosinophils (%) (Auto) 0.5 Basophils (%) (Auto) 1.0 Neutrophils # (Auto) 6.9 Lymphocytes # (Auto) 0.7 Monocytes # (Auto) 0.8 Eosinophils # (Auto) 0.0 Basophils # (Auto) 0.1 CBC Comment DIFF FINAL Differential Comment Prothrombin Time 10.0 Prothromb Time International Ratio 1.0 Activated Partial Thromboplast Time 26.3 Blood Urea Nitrogen 12 Creatinine 0.82 Random Glucose 89 Total Protein 7.6 Albumin 3.8 Calcium Level 9.4 Alkaline Phosphatase 103 Aspartate Amino Transf (AST/SGOT) 15 Alanine Aminotransferase (ALT/SGPT) 16 Total Bilirubin 0.3 Sodium Level 141 Potassium Level 4.5 Chloride Level 105 Carbon Dioxide Level 29.7 Anion Gap 6 Estimat Glomerular Filtration Rate 68 Total Creatine Kinase 62 Troponin I LESS THAN 0.02 Result Diagram: 01/27/18 1540 01/27/18 1540 Imaging Last Impressions Head CT 01/27/18 1511 Signed Impressions: Service Date/Time: Saturday, January 27, 2018 17:53 - CONCLUSION: No acute disease. Florentin Rea MD Chest X-Ray 01/27/18 1511 Signed Impressions: Service Date/Time: Saturday, January 27, 2018 15:16 - CONCLUSION: There is mild atelectasis in the right lung base. Otherwise, the rest of lungs are grossly clear. No significant changes compared to the prior study. Michael Cole MD Neck CTA 01/27/18 0000 Signed Impressions: Service Date/Time: Saturday, January 27, 2018 17:53 - CONCLUSION: No acute disease. No significant stenosis is seen. Florentin Rea MD Head CTA 01/27/18 0000 Signed Impressions: Service Date/Time: Saturday, January 27, 2018 17:53 - CONCLUSION: Negative CTA of the head. Florentin Rea MD Capcarlai VTE Risk Assessment Caprini VTE Risk Assessment: Mod/High Risk (score >= 2) Caprini Risk Assessment Model Point Value = 1 Point Value = 2 Point Value = 3 Point Value = 5 Age 41-60 Minor surgery BMI > 25 kg/m2 Swollen legs Varicose veins or History of unexplained or recurrent spontaneous Oral contraceptives or hormone replacement Sepsis (< 1 month) Serious lung disease, including pneumonia (< 1 month) Abnormal pulmonary function Acute myocardial infarction Congestive heart failure (< 1 month) History of inflammatory bowel disease Medical patient at bed rest Age 61-74 Arthroscopic surgery Major open surgery (> 45 min) Laparoscopic surgery (> 45 min) Malignancy Confined to bed (> 72 hours) Immobilizing plaster cast Central venous access Age >= 75 History of VTE Family history of VTE Factor V Leiden Prothrombin [id number] Lupus anticoagulant Anticardiolipin antibodies Elevated serum homocysteine Heparin-induced thrombocytopenia Other congenital or acquired thrombophilia Stroke (< 1 month) Elective arthroplasty Hip, pelvis, or leg fracture Acute spinal cord injury (< 1 month) Prophylaxis Regimen Total Risk Factor Score Risk Level Prophylaxis Regimen 0-1 Low Early ambulation 2 Moderate Order ONE of the following: *Sequential Compression Device (SCD) *Heparin 5000 units SQ BID 3-4 Higher Order ONE of the following medications: *Heparin 5000 units SQ TID *Enoxaparin/Lovenox 40 mg SQ daily (WT < 150 kg, CrCl > 30 mL/min) *Enoxaparin/Lovenox 30 mg SQ daily (WT < 150 kg, CrCl > 10-29 mL/min) *Enoxaparin/Lovenox 30 mg SQ BID (WT < 150 kg, CrCl > 30 mL/min) AND/OR *Sequential Compression Device (SCD) 5 or more Highest Order ONE of the following medications: *Heparin 5000 units SQ TID (Preferred with Epidurals) *Enoxaparin/Lovenox 40 mg SQ daily (WT < 150 kg, CrCl > 30 mL/min) *Enoxaparin/Lovenox 30 mg SQ daily (WT < 150 kg, CrCl > 10-29 mL/min) *Enoxaparin/Lovenox 30 mg SQ BID (WT < 150 kg, CrCl > 30 mL/min) AND *Sequential Compression Device (SCD) Assessment and Plan Problem List: (1) TIA (transient ischemic attack) ICD Code: G45.9 - Transient cerebral ischemic attack, unspecified (2) Jamie's granulomatosis (granulomatosis with polyangiitis) ICD Code: M31.30 - Granulomatosis with polyangiitis (Jamie's) Status: Chronic Assessment and Plan 72-year-old female with 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 fib with ablation 2016 on anticoagulation and GERD presented to the ED with complaints of right-sided face tingling that occurred today. TIA, acute, patient with right facial tingling Heat CT reviewed and shows no acute abnormalities Head CTA reviewed and is negative Neck CTA reviewed and shows no acute disease -MRI/MRA ordered -Consult neurology for recommendations -PT/OT/ST ordered -Lipid profile ordered -Neuro checks Wegeners, chronic -Consult oncology for recommendations, patient currently on eliquis DVT prophylaxis: SCDs, hold eliquis until MRI results Discussed Condition With Patient and RN Nancy Hassan Jan 27, 2018 20:41
[2018-01-27] MEDS ORDERED: SODIUM CHLORIDE 0.9% FLUSH 10 ML FLUSH IV FLUSH PRN (20:45)
[2018-01-27] MEDS: SODIUM CHLORIDE 0.9% FLUSH 10 ML FLUSH IV FLUSH SCH (21:00)
--- NOTE | 2018-01-27 23:25 | RADRPT ---
EXAM DATE/TIME: 01/27/2018 22:45 [facility] COMPARISON: No previous studies available for comparison. INDICATIONS : TIA. Tingling in the right side of the face. MEDICAL HISTORY : Gastroesophageal reflux disease. Wegeners granulomatosis, atrial fibrillation. SURGICAL HISTORY : Total knee replacement, right. Cholecystectomy. Hysterectomy. Tonsillectomy and left shoulder. ENCOUNTER: Initial ACUITY: 1 day PAIN SCORE: 0/10 LOCATION: Head. Please note a normal MRA of the brain does not entirely exclude the possibility of a small aneurysm, nor the possibility of distal intracranial vessel disease. TECHNIQUE: 3D time of flight MRA was performed. Source images, multiplanar STS MIP, and 3D volume MIP reconstru ctions were reviewed. FINDINGS: There is excellent visualization of the major intracranial arteries out to the second-order branch ve ssels. There is no evidence for aneurysm, vessel truncation or stenosis, and no evidence for vascula r malformation. Persistent circulation and both posterior cerebral arteries. Anterior communica ting artery. CONCLUSION: No large vessel stenosis or aneurysm. Timothy Morin MD on January 27, 2018 at 23:21 Board Certified Radiologist. This report was verified electronically.
[2018-01-27 23:26] VITALS: BP 124/61; PULSE 85; RESP 15; TEMP 98; O2SAT 98
--- NOTE | 2018-01-27 23:30 | RADRPT ---
EXAM DATE/TIME: 01/27/2018 22:45 [facility] COMPARISON: CT BRAIN W/O CONTRAST, January 27, 2018, 17:53. INDICATIONS : TIA. Tingling in the right side of the face and head. MEDICAL HISTORY : Xavier's granulomatosis, atrial fibrillation, gerd, hiatal hernia, diverticulosis SURGICAL HISTORY : Total knee replacement, right. Cholecystectomy. Tonsillectomy. Hysterectomy. ENCOUNTER: Initial ACUITY: 1 day PAIN SCORE: 0/10 LOCATION: Brain TECHNIQUE: Multiplanar, multisequence MRI of the brain was performed without contrast. FINDINGS: CEREBRUM: The ventricles are normal for age. No evidence of midline shift, mass lesion, hemorrhage or acute in farction. No extraaxial fluid collections are seen. The pituitary gland and suprasellar cistern are normal in configuration. WHITE MATTER: No significant signal abnormalities are seen in the white matter. POSTERIOR FOSSA: The cerebellum and brainstem are intact. The 4th ventricle is midline. The cerebellopontine angle is unremarkable. The cerebellar tonsils are normal in position. DIFFUSION IMAGING: No focal areas of restricted diffusion are seen. No evidence of acute infarction. EXTRACRANIAL: The visualized portions of the orbits and paranasal sinuses are unremarkable. CONCLUSION: Unremarkable MRI of brain. Timothy Morin MD on January 27, 2018 at 23:24 Board Certified Radiologist. This report was verified electronically.
[2018-01-27 23:59] VITALS: PULSE 82
[2018-01-28] VITALS (7 sets, daily range): BP systolic 93–127; BP diastolic 50–59; PULSE 62–86; RESP 16–18; TEMP 98–99.1; O2SAT 94–99
[2018-01-28 07:41] LABS: CHOLESTEROL/ HDL RATIO 2.68 RATIO; HDL CHOLESTEROL 63.8 MG/DL (40.0-60.0)
[2018-01-28] MEDS ORDERED: SODIUM CHLOR 0.9% 1000 ML INJ 1,000 ML IV SCH (08:39)
[2018-01-28] MEDS: SODIUM CHLORIDE 0.9% FLUSH 10 ML FLUSH IV FLUSH SCH (08:45)
[2018-01-28] MEDS ORDERED: FAMOTIDINE 20 MG TAB PO SCH (09:00)
[2018-01-28] MEDS ORDERED: APIXABAN 5 MG TABLET PO SCH (09:00)
--- NOTE | 2018-01-28 09:18 | MB ---
cc: Clif Chou MD DATE: 01/28/2018 HISTORY OF PRESENT ILLNESS: A 72-year-old right-handed woman with a history of atrial fibrillation, status post ablation in 2005, DVT who takes Eliquis 5 b.i.d., Jamie's granulomatosis, some shortness of breath with that followed by Dr. Arias, on rituximab. She had some remote peptic ulcer disease. She had a stroke, she thinks, about 10 years ago with some left-sided weakness. She had 2 TIAs, one was before the stroke where she had tingling on the right side of her face, and then another was about 7 years ago, very similar to this episode. Yesterday, she did not have any chest pain. She did have some palpitations and evidently when the rn medical surgical got there, her heart rate was about 140. Nevertheless, about 1:22 p.m., she tells me, she was eating lunch, had an odd feeling in her head as if everything shut down, then noticed some tingling on the right faith and in the hair which over 10 minutes went down into her right chin and then into the top and back of her head on the right side. Nothing in the arm or leg, and then today, she notes that maybe her speech is not as good as it was before. She does have a history of obstructive sleep apnea. REVIEW OF SYSTEMS: She denies any hypertension, diabetes, hypercholesterolemia, [place], CABG, stent, angioplasty, renal or hepatic disease, thyroid disease, lupus, cancer, or seizure. SOCIAL HISTORY: She is not a smoker or drinker, lives by herself. FAMILY HISTORY: Negative for cancer or stroke. ALLERGIES: SHE IS ALLERGIC TO SULFA, ASPIRIN, PLAVIX, DIPYRIDAMOLE, DOXYCYCLINE, METHOTREXATE, MINOCYCLINE, ROSUVASTATIN, AMLODIPINE, ATENOLOL, ATORVASTATIN, MELOXICAM, METOPROLOL, MORPHINE, PRAVASTATIN, SIMVASTATIN, ENOXAPARIN AND COUMADIN DUE TO THROAT SWELLING. MEDICATIONS: She is on ranitidine, nitroglycerin p.r.n., Eliquis 5 b.i.d.,Ventolin inhaler and rituximab weekly. PHYSICAL EXAMINATION: VITAL SIGNS: She was sinus rhythm when she came in the hospital. Blood pressure as low was 93/50, afebrile, 85, 15, pulse rate initially 112, otherwise noted maybe 140 with the EMT according to the patient. NECK: There were no carotid bruits. HEART: Regular rhythm. I do not detect a murmur. NEUROLOGIC: Pupils are equal. Visual rios are full. Extraocular movements intact without nystagmus. Face is symmetric. She had decreased sensation in the right trigeminal nerve distribution, sparing the occipital region of V1, V2, and V3, not on the neck, not on the arms or legs. Pinprick was intact, but diminished pinprick on the right side of the face really holding to the trigeminal nerve distribution compared to the left. There was no drift. She has normal strength in upper and lower extremities bilaterally. Fast finger movements are symmetric and normal. DTRs are diminished slightly in the right knee due to a surgery, otherwise 1+ throughout and symmetric. Toes were downgoing bilaterally. There is no clonus. Vibratory sense was intact. She is not ataxic on [id number]. Speech is fluent. She is not aphasic. Repetition was normal. Naming was normal. LABORATORY STUDIES: CBC is normal. Basic metabolic profile was normal. LFTs normal. Troponin, CPK, cholesterol and LDL all normal. IMAGING STUDIES: She had a CTA of her head which was negative. She had an MRA of the brain that was normal. She had a CTA of her neck that was normal. She had an MRI of her brain, which was read as normal. She had a CAT scan of the brain, which was read as normal. She had a chest x-ray that showed some mild atelectasis in the right lung base, otherwise normal. Review of the MRI of the brain, there was in fact no stroke. Diffusion images normal. Brainstem is normal. I do not see anything around the right trigeminal nerve region. ASSESSMENT AND PLAN: Possibly a migraine, the way that these symptoms came on so slowly really. It took 10 minutes to go down her face and another 20 minutes ago to the top of her head. She is also somewhat diminished sensation really in the right trigeminal nerve. It really holds to that distribution and it may be that we need to do an MRI with contrast to make sure there is nothing around the right fifth cranial nerve as I do not see any on the current MRI. We will also check an EEG on her and continue her on her Eliquis. We can check an echocardiogram on her. There does not appear to be an increased risk of stroke with the Rituxan. The Jamie's can cause mononeuritis multiplex or neuropathy as a vasculitic injury to the fifth cranial nerve could be considered; however, I think probably unlikely. This kind of symptoms have happened to her twice before in her life on the right side of her face before her stroke about 10 years ago and another episode about 7 years ago. An acephalgic migraine is probably more likely. Strokes are rare in the Jamie's but have been reported. Check some additional blood work on her, get the MRI with contrast. MD YAQUELIN Persaud/ALFREDO , 08:41 AM , 09:17 AM
--- NOTE | 2018-01-28 12:33 | EKG ---
Date Performed: 01/27/2018 Time Performed: 15:32:32 PTAGE: 72 years EKG: SINUS TACHYCARDIA LOW QRS VOLTAGE IN PRECORDIAL LEADS PATTERN CONSISTENT WITH PULMONARY DIS EASE MINIMAL VOLTAGE CRITERIA FOR LVH, CONSIDER NORMAL VARIANT ABNORMAL ECG PREVIOUS TRACING : 06/17/2017 08.22 Since the previous tracing, no significant change noted DOCTOR: Jerry Flores Interpretating Date/Time 01/28/2018 12:33:00
[2018-01-28 14:19] LABS: RHEUMATOID FACTOR SCREEN NEGATIVE (NEGATIVE)
[2018-01-28 14:44] LABS: C-REACTIVE PROTEIN LESS THAN 0.29 MG/DL (0.00-0.30); FREE T4 0.96 NG/DL (0.76-1.46)
[2018-01-28] MEDS ORDERED: GADODIAMIDE PF 287 MG/ML 20 ML VIAL (for RAD MRI) IVCONTRAST ONE (14:55)
[2018-01-28 15:02] LABS: FOLATE GREATER THAN 20.0 NG/ML (3.1-17.5)
--- NOTE | 2018-01-28 15:15 | RADRPT ---
EXAM DATE/TIME: 01/28/2018 14:35 [place] COMPARISON: No previous studies available for comparison. INDICATIONS : CVA. Right sided tingling. CONTRAST: 17 cc Omniscan (gadodiamide) IV MEDICAL HISTORY : Gastroesophageal reflux disease. Wegeners granulomatosis and atrial fibrillation. SURGICAL HISTORY : Total knee replacement, right. Cholecystectomy. Tonsillectomy. Left hand, hysterectomy, ablation for atrial fibrillation, left hand and left shoulder. ENCOUNTER: Initial ACUITY: 1 day PAIN SCORE: 0/10 LOCATION: Head. TECHNIQUE: Multiplanar, multisequence MRI of the brain was performed both prior to and following the administrat ion of paramagnetic contrast. FINDINGS: CEREBRUM: The ventricles are normal for age. No evidence of midline shift, mass lesion, hemorrhage or acute in farction. No extraaxial fluid collections are seen. The pituitary gland and suprasellar cistern are normal in configuration. WHITE MATTER: No significant signal abnormalities are seen in the white matter. POSTERIOR FOSSA: The cerebellum and brainstem are intact. The 4th ventricle is midline. The cerebellopontine angle is unremarkable. The cerebellar tonsils are normal in position. DIFFUSION IMAGING: No focal areas of restricted diffusion are seen. No evidence of acute infarction. EXTRACRANIAL: The visualized portions of the orbits and paranasal sinuses are unremarkable. POST-CONTRAST: No abnormal areas of parenchymal or dural enhancement. No evidence of blood-brain barrier breakdown. CONCLUSION: Normal examination. Florentin Law MD on January 28, 2018 at 15:12 Board Certified Radiologist. This report was verified electronically.
[2018-01-28 15:45] LABS: HEMOGLOBIN A1C 5.4 % (4.3-6.0)
--- NOTE | 2018-01-28 17:24 | HHI.PR ---
Subjective Remarks Patient seen with daughter at bedside Patient reports symptoms have completely resolved Offers no complaints at this time asking to go home Objective Vitals Vital Signs Date Time Temp Pulse Resp B/P (MAP) Pulse Ox O2 Delivery O2 Flow Rate FiO2 01/28/18 15:55 98.0 80 16 111/54 (73) 97 01/28/18 12:45 98.0 86 18 122/58 (79) 94 127/58 (81) 120/59 (79) 01/28/18 08:00 72 01/28/18 07:20 98.3 67 16 119/58 (78) 97 01/28/18 05:07 99.1 68 16 112/56 (74) 99 01/28/18 04:10 62 01/28/18 02:38 98.3 69 16 93/50 (64) 98 01/27/18 23:59 82 01/27/18 23:26 98.0 85 15 124/61 (82) 98 01/27/18 19:07 84 18 158/71 (100) 96 Room Air 01/27/18 18:00 85 20 141/67 (91) 97 Room Air Result Diagram: 01/27/18 1540 01/27/18 1540 Other Results Laboratory Tests Test 01/27/18 15:40 01/27/18 21:44 01/28/18 05:56 01/28/18 13:05 White Blood Count 8.5 TH/MM3 Red Blood Count 4.18 MIL/MM3 Hemoglobin 12.7 GM/DL Hematocrit 37.3 % Mean Corpuscular Volume 89.1 FL Mean Corpuscular Hemoglobin 30.4 PG Mean Corpuscular Hemoglobin Concent 34.1 % Red Cell Distribution Width 13.7 % Platelet Count 312 TH/MM3 Mean Platelet Volume 7.5 FL Neutrophils (%) (Auto) 81.2 % Lymphocytes (%) (Auto) 8.4 % Monocytes (%) (Auto) 8.9 % Eosinophils (%) (Auto) 0.5 % Basophils (%) (Auto) 1.0 % Neutrophils # (Auto) 6.9 TH/MM3 Lymphocytes # (Auto) 0.7 TH/MM3 Monocytes # (Auto) 0.8 TH/MM3 Eosinophils # (Auto) 0.0 TH/MM3 Basophils # (Auto) 0.1 TH/MM3 CBC Comment DIFF FINAL Differential Comment Prothrombin Time 10.0 SEC Prothromb Time International Ratio 1.0 RATIO Activated Partial Thromboplast Time 26.3 SEC Blood Urea Nitrogen 12 MG/DL Creatinine 0.82 MG/DL Random Glucose 89 MG/DL Total Protein 7.6 GM/DL 6.6 GM/DL Albumin 3.8 GM/DL Calcium Level 9.4 MG/DL Alkaline Phosphatase 103 U/L Aspartate Amino Transf (AST/SGOT) 15 U/L Alanine Aminotransferase (ALT/SGPT) 16 U/L Total Bilirubin 0.3 MG/DL Sodium Level 141 MEQ/L Potassium Level 4.5 MEQ/L Chloride Level 105 MEQ/L Carbon Dioxide Level 29.7 MEQ/L Anion Gap 6 MEQ/L Estimat Glomerular Filtration Rate 68 ML/MIN Total Creatine Kinase 62 U/L Troponin I LESS THAN 0.02 NG/ML Triglycerides Level 69 MG/DL Cholesterol Level 171 MG/DL LDL Cholesterol 93 MG/DL HDL Cholesterol 63.8 MG/DL Cholesterol/HDL Ratio 2.68 RATIO Erythrocyte Sedimentation Rate 29 mm/hr C-Reactive Protein LESS THAN 0.29 MG/DL Vitamin B12 Level 521 PG/ML Folate GREATER THAN 20.0 NG/ML Free Thyroxine 0.96 NG/DL Thyroid Stimulating Hormone 3rd Gen 1.730 uIU/ML Rheumatoid Factor Screen NEGATIVE Rheumatoid Factor Titer IU/ML Imaging Last Impressions Brain MRI 01/28/18 0839 Signed Impressions: Service Date/Time: December 14:35 - CONCLUSION: Normal examination. Florentin Law MD Head CT 01/27/18 151 Signed Impressions: Service Date/Time: Saturday, January 27, 2018 17:53 - CONCLUSION: No acute disease. Florentin Rea MD Chest X-Ray 01/27/18 1511 Signed Impressions: Service Date/Time: Saturday, January 27, 2018 15:16 - CONCLUSION: There is mild atelectasis in the right lung base. Otherwise, the rest of lungs are grossly clear. No significant changes compared to the prior study. Michael Cole MD Neck CTA 01/27/18 0000 Signed Impressions: Service Date/Time: Saturday, January 27, 2018 17:53 - CONCLUSION: No acute disease. No significant stenosis is seen. Florentin Rea MD Head Magnetic Resonance Angiography 01/27/18 0000 Signed Impressions: Service Date/Time: Saturday, January 27, 2018 22:45 - CONCLUSION: No large vessel stenosis or aneurysm. Timothy Morin MD Head CTA 01/27/18 0000 Signed Impressions: Service Date/Time: Saturday, January 27, 2018 17:53 - CONCLUSION: Negative CTA of the head. Florentin Rea MD Objective Remarks GENERAL: This is a well-nourished, well-developed patient, in no apparent distress. CARDIOVASCULAR: Regular rate and rhythm RESPIRATORY: Clear to auscultation. Breath sounds equal bilaterally. GASTROINTESTINAL: Abdomen soft, non-tender, nondistended. Normal active bowel sounds MUSCULOSKELETAL: Extremities without clubbing, cyanosis, or edema. NEURO: Alert & Oriented x4 to person, place, time, situation. 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 fib with ablation 2015 on anticoagulation and GERD presented to the ED with complaints of right-sided face tingling that occurred today. Patient with right facial tingling - Heat CT reviewed no acute abnormalities - Head CTA reviewed negative CTA head - Neck CTA reviewed no acute disease. No significant stenosis seen - MRI brain with and without contrast normal exam - MRA of the head reviewed no large vessel stenosis or aneurysm - Consult neurology, appreciate input feels as though patient's symptoms are more consistent with a typical migraine Wegeners, chronic - Continue patient's home eliquis - Patient has outpatient follow-up appointment Thursday DVT prophylaxis: SCDs Patient's symptoms have completely resolved and patient is asking to be discharged home. We'll discharge patient home in stable condition with continued home medications, heart healthy diet, no activity restrictions and follow up instructions. Patient understands echocardiogram has not been done and patient does not wish to stay for echocardiogram. Echocardiogram has been ordered but not completed the patient to follow-up with outpatient for healthcare cardiology for echocardiogram. EEG has been completed but not resulted patient to follow-up with PCP in 1 week and neurology in 2 weeks. (2) Jamie's granulomatosis (granulomatosis with polyangiitis) ICD Codes: M31.30 - Granulomatosis with polyangiitis (Jamie's) Status: Chronic Assessment and Plan Patient examined. Assessment and plan formulated with Tammy Do PA-C. I agree with the above. Tammy Do Jan 28, 2018 17:24 Deven Cheatham DO Feb 03, 2018 22:09
--- NOTE | 2018-01-28 22:43 | MB ---
cc: Gaby Arias MD DATE: 01/28/2018 REASON FOR CONSULTATION: Consult requested by hospitalist for evaluation in a patient who is admitted for possible TIA. HISTORY OF PRESENT ILLNESS: Aniyah is a 72-year-old female. She has Jamie granulomatosis and she has been on immunotherapy with Rituxan. Her last Rituxan was on Thursday. The patient came in to the emergency room yesterday complaining of tingling and numbness of the right side of the face. She is on observation for transient ischemic attack. Neurology has been consulted. I have been asked to see her for further evaluation. The patient states that her symptoms have now completely resolved. She has a history of stroke and TIA x 2 before. She has been on Eliquis for atrial fibrillation. She denies any weakness of one side of the body. She does not have any facial droop or speech difficulty. The rest of the review of systems is negative. PAST MEDICAL HISTORY: Left lower extremity deep venous thrombosis, arthritis, asthma, coronary artery disease, gastroesophageal reflux disease, history of stroke, history of TIA, Jamie granulomatosis, atrial fibrillation. PAST SURGICAL HISTORY: Cardiac catheterization, knee surgery, tonsillectomy, cholecystectomy, hysterectomy. ALLERGIES: AGGRENOX, ATENOLOL, BENADRYL, COUMADIN, CRESTOR, LEVOFLOXACIN, LOVENOX, MELOXICAM, METOPROLOL, MORPHINE, PLAVIX, STATIN, SULFA, TETRACYCLINE, VANCOMYCIN. MEDICATIONS: Prior to coming to the hospital Eliquis, albuterol, Gaviscon, nitroglycerin, Qvar, Zantac. FAMILY HISTORY: No history of malignancy. SOCIAL HISTORY: The patient does not smoke cigarettes and does not drink alcohol. She is a . 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 PHYSICAL EXAMINATION: GENERAL: A well-developed, well-nourished white female, in no apparent distress. VITAL SIGNS: Temperature 98.3, heart rate is 67, respiratory rate is 16, blood pressure is 119/58, O2 saturation 97%. HEAD, EYES, EARS, NOSE, AND THROAT: Pupils equal, round, reactive to light and accommodation, extraocular movements intact. Anicteric. No oral lesions noted. No thrush noted. NECK: Supple. No JVD. No masses noted. LUNGS: Clear. No wheezing, rhonchi, or rales. HEART: Regular rate and rhythm. No murmur heard. ABDOMEN: Soft and nontender. No hepatosplenomegaly. No abnormal bowel sounds. No guarding or rigidity noted. EXTREMITIES: No pedal edema. No cyanosis, no clubbing. NEUROLOGIC: Awake, alert, oriented x 3. Sensory and motor seem to be intact. SKIN: No bruises or petechiae noted. LYMPH NODES: No cervical, supraclavicular, or axillary lymphadenopathy noted. BACK: There is no spinal tenderness noted. ASSESSMENT: 1. Numbness and tingling of the right side of the face. The etiology of that is unknown. This is not due to immunotherapy Rituxan. 2. Jamie granulomatosis, currently on immunotherapy with Rituxan. PLAN: I have reviewed her available records and I have discussed with the patient regarding her current symptomatology. This is not related to her Jamie's or immunotherapy Rituxan. The patient has been on Rituxan since 2010 and she never had any problem like that. She did have a history of stroke and also 2 TIAs a long time ago. I have reviewed her radiological studies which are unremarkable. I have discussed the case with neurologist, Dr. Chou in the ER. Dr. Chou is going to see the patient and will make recommendations. At this time, there is no hematology intervention that is required. Her current symptoms are not related to the Rituxan. Therefore, I will sign off on the case, and will be available as needed. Thank you for asking my opinion. MD LY Godinez/rt , 09:53 PM , 10:41 PM HECTOR
--- NOTE | 2018-01-29 07:58 | MG ---
cc: Madhu Merrill MD, PhD DATE OF THE STUDY: 01/28/2018. TEST NUMBER: [id number]. TECHNIQUE: 17-channel EEG. DESCRIPTION: The background rhythm reveals a symmetrical alpha rhythm. The frequency is 8-9 Hz. Amplitude is 10-20 microvolts. During drowsiness, there is mild slowing in the theta range. No lateralizing features are identified and no epileptiform discharges are identified. Photic results in a normal driving response. INTERPRETATION: This is a normal EEG. Madhu Merrill MD, PhD JON/BRO , 04:56 PM , 05:05 PM
[2018-01-29 14:29] LABS: ANA SCREEN NEG (NEG)
[2018-02-02 06:50] LABS: METHYLMALONIC ACID 0.26 nmol/mL (<=0.40)
== END 2018-01-28 18:35 | disposition home or self-care (01) ==
LOC: NEPC 14:59 → NEDA 19:28 → NEPGCP 22:02
PROVIDERS: ADMIT Hospitalist; ATTEND Hospitalist
DX: G45.9 Transient cerebral ischemic attack, unspecified (principal); R06.02 Shortness of breath; M31.30 Wegener's granulomatosis without renal involvement; I25.10 Atherosclerotic heart disease of native coronary artery without angina pectoris; I48.91 Unspecified atrial fibrillation; G47.33 Obstructive sleep apnea (adult) (pediatric); R94.31 Abnormal electrocardiogram [ECG] [EKG]; G43.009 Migraine without aura, not intractable, without status migrainosus; H91.90 Unspecified hearing loss, unspecified ear; K21.9 Gastro-esophageal reflux disease without esophagitis; J45.909 Unspecified asthma, uncomplicated; M19.90 Unspecified osteoarthritis, unspecified site; Z79.01 Long term (current) use of anticoagulants; Z86.73 Personal history of transient ischemic attack (TIA), and cerebral infarction without residual deficits; Z86.718 Personal history of other venous thrombosis and embolism; Z87.11 Personal history of peptic ulcer disease
CPT/HCPCS: 70450; 70496; 70498; 70544; 70551; 70553; 71045; 80053; 80061; 82550; 82607; 82746; 82948; 83036; 83921; 84165; 84207; 84425; 84439; 84443; 84484; 85025; 85610; 85652; 85730; 86038; 86140; 86430; 86592; 93005; 95819; 96125; 96360; 97163; 97165; 99285; A9579; G0378; G8987; G8988; G8989; G9168; G9169; G9170; J7030; Q9967